=== PATIENT | female | born 1950 | race Caucasian/White ===

== ENCOUNTER 2025-04-05 17:13 | Emergency (ER) | payer MEDICARE, SELFPAY ==
[2025-04-05] VITALS (10 sets, daily range): BP systolic 140–156; BP diastolic 71–86; PULSE 80–87; RESP 16–20; TEMP 36.7–36.8; O2SAT 96–98; BMI 23.4
--- NOTE | 2025-04-05 17:45 | PC.NURSE ---
pt stated she wanted to wait for one of the rooms coming open so her family can be with her.
--- OUTSIDE RECORDS SUMMARY | 2025-04-05 18:31 | XMS_ITS ---
Author Organization Unknown TREATMENT PLAN [facility] Start Date Provider Encounter for Check-up [id number] [address]
--- NOTE | 2025-04-05 18:58 | PC.NURSE ---
pt back to triage and agreeable to be straight stuck for blood and willing to give a urine sample. this nurse apologized for not having a room available.
--- NOTE | 2025-04-05 19:00 | ECG_ITS ---
APPROVED REPORT Exam: Resting ECG HR:82 bpm ECG Measurements Heart Rate 82 AXES OK 221 P 64 QRSd 91 QRS 75 QT 340 T -33 QTc 379 Conclusion SINUS RHYTHM WITH FIRST DEGREE AV BLOCK LOW QRS VOLTAGE IN PRECORDIAL LEADS [QRS DEFLECTION < 1.0 mV IN CHEST LEADS] MODERATE T-WAVE ABNORMALITY, CONSIDER INFERIOR ISCHEMIA [-0.1+ mV T-WAVE IN II/aVF] ABNORMAL ECG UNCONFIRMED REPORT Electronically signed by : BIANCA VICTOR, 04/07/2025 23:05:31
--- NOTE | 2025-04-05 19:19 | XR_ITS ---
PROCEDURE INFORMATION: Exam: XR Chest Exam date and time: 04/05/2025 8:29 PM Age: 74 years old Clinical indication: Other: Weakness TECHNIQUE: Imaging protocol: Radiologic exam of the chest. Views: 1 view. COMPARISON: No relevant prior studies available. FINDINGS: Lungs: Question mild pulmonary hyperexpansion/hyperlucency suspicious for COPD. Pulmonary vasculature grossly normal. Questionable mild asymmetric alveolar density in the peripheral left mid lung, can not exclude early/mild pneumonia. Mild bandlike atelectasis in the medial left lung base. Granulomatous calcifications noted. Pleural spaces: No pleural effusion. No pneumothorax. Heart/Mediastinum: Heart size normal. No tracheal/mediastinal shift. Vasculature: The aorta demonstrates mild ectasia/tortuosity and moderate calcific atherosclerosis. Bones/joints: No acute osseous abnormalities are identified. Osteopenia. Organs: 3.7 x 2.7 cm masslike fullness in the left thyroid lobe distribution suspicious for thyroid mass. Consider nonemergent thyroid ultrasound assessment. IMPRESSION: 1. Question mild asymmetric alveolar density in the peripheral left mid lung, possibly early pneumonia. 2. 3.7 x 2.7 cm masslike density in the distribution of the left thyroid lobe. Correlate clinically, recommend nonemergent sonographic assessment.
--- NOTE | 2025-04-05 19:20 | XR_ITS ---
PROCEDURE INFORMATION: Exam: XR Left Hip Exam date and time: 04/05/2025 8:29 PM Age: 74 years old Clinical indication: Hip pain; Left hip; Additional info: Fall with pain TECHNIQUE: Imaging protocol: Radiologic exam of the left hip. Views: 2 or 3 views hip with pelvis when performed. COMPARISON: No relevant prior studies available. FINDINGS: Bones/joints: No fracture or malalignment. Soft tissues: No gross soft tissue abnormalities. IMPRESSION: No acute findings.
[2025-04-05 19:30] LABS: Hematocrit 35.0 % (37.0-47.0); Hemoglobin 11.9 g/dL (12.2-16.2); Immature Granulocytes % 0.1 %; Mean Corpuscular HGB Conc 34.0 g/dL (31.8-35.4); Mean Corpuscular Hemoglobin 30.7 pg (27.0-31.2); Mean Corpuscular Volume 90.2 fl (81-99); Nucleated Red Blood Cells % 0 %; Platelet Count 245 K/mm3 (142-424); Red Blood Count 3.88 M/mm3 (4.20-5.40); Red Cell Distribution Width-SD 41.4 fL; White Blood Count 7.9 K/mm3 (4.8-10.8)
[2025-04-05 19:46] LABS: Alanine Aminotransferase 13 U/L (12-78); Albumin Level 4.5 g/dl (3.5-5.0); Albumin/Globulin Ratio 2.0 (1.1-1.8); Alkaline Phosphatase 84 U/L (38-126); Anion Gap 17.0 mEq/L (5-15); Aspartate Amino Transferase 24 U/L (14-36); Bilirubin,Total 0.7 mg/dl (0.2-1.3); Blood Urea Nitrogen 25 mg/dl (7-17); Calcium 10.7 mg/dl (8.4-10.2); Carbon Dioxide 26 mmol/L (22.0-30.0); Chloride 100 mmol/L (98-107); Creatinine Clearance Estimated 31 mL/min (50-200); Creatinine,Serum 1.40 mg/dl (0.52-1.04); Estimated Glomerular Filt Rate 37 ml/min (>60); GFR (African American) 45 ML/MIN (>60); Globulin 2.3 g/dL (1.3-3.2); Glucose 100 mg/dl (74-100); Magnesium 2.0 mg/dl (1.6-2.3); Potassium 4.0 mmoL/L (3.5-5.1); Sodium 139 mmol/L (136-145); Total Protein,Serum 6.8 g/dl (6.3-8.2)
[2025-04-05 19:56] LABS: Troponin I < 0.01 ng/ml (0.00-0.034)
[2025-04-05 20:00] LABS: T4 (Thyroxine) 4.5 ug/dl (5.53-11.0)
[2025-04-05 20:14] LABS: Thyroid Stimulating Hormone 0.50 uIU/mL (0.465-4.68)
--- NOTE | 2025-04-05 21:08 | HMH.EDGENADL ---
Discharge Plan Disposition Patient Disposition: Home, Self-Care Prescriptions Prescriptions: New azithromycin 500 mg tablet 500 mg PO DAILY 5 Days Qty: 5 0RF Rx Instructions: 500 mg orally day 1 then 1 tab days 2-5 cefdinir 300 mg capsule 300 mg PO Q12H 10 Days Qty: 20 0RF Referrals Follow up/Referrals: Hernando Rader [Primary Care Provider, Medical] - See instructions Activity Restrictions/Add. Instructions Additional Instructions/Restrictions: Increase fluids and rest. Take meds as directed. Please see Dr. Rader or Friday of this week to reassess hip pain. He may need to do an MRI or other further imaging and treatment. Your imaging did show beginning stages of pneumonia. Also you do need to have a ultrasound of your thyroid as it did show a density on the left thyroid that needs to be imaged by your primary care. Clinical Impressions Clinical Impression: Acute pain of left hip, Pneumonia Instructions Patient Instructions: Pneumonia in Adults, DI for Pneumonia in Adults, How to Prevent Falls, DI for Joint Pain Print Language Print Language: Burkinan Discharge ED Provider: Zane Almanza General Adult HPI <Sonia Boone (ED), MANAGER MANAGING - Last Filed: 04/05/25 22:09> General Chief complaint: Fall Stated complaint: AMS Time Seen by Provider: 04/05/25 20:29 Mode of Arrival: Wheelchair Source of Information: Patient and Relative Description of Symptoms (Recalled from ER Triage Doc. by RN): pt to the ED with family with right hip pain after a fall yesterday. pt reports she tripped and fell onto her left hip. pt denies any LOC. pt family also states that the patient has been forgetful over the last 3 weeks and is concerned she might have a UTI. pt denies any urinary symptoms. History of Present Illness HPI narrative: 74-year-old female presents with family for left hip pain after a fall yesterday. The initial note says right hip but it is left hip pain she tripped and fell on wooden chair and fell into the other. She did not lose consciousness she did not hit her head or neck. She has been forgetful according to family. This has been going on for the last month or so. Patient denies any problems but family thinks that she is having some issues with her memory. Related Data Previous Rx's ?Medication ?Instructions ?Recorded azithromycin 500 mg tablet 500 mg PO DAILY 5 days #5 tabs 04/05/25 cefdinir 300 mg capsule 300 mg PO Q12H 10 days #20 caps 04/05/25 Allergies Allergy/AdvReac Type Severity Reaction Status Date / Time No Known Allergies Allergy Verified 04/05/25 19:19 PFSH <Sonia Boone (ED), MANAGER MANAGING - Last Filed: 04/05/25 22:09> PFS Disclaimer: The information contained in this section may have been updated after the patient was seen, as this information can be updated by other users. Social History (Updated 04/05/25 @ 22:09 by Sonia Boone (ED), MANAGER MANAGING) Smoking Status: Never smoker alcohol intake: former current occupational status: other Travel in the last 8 weeks?: None Have you lived/traveled outside US in past 30 days?: No Contact w/someone who lives/traveled outside US past 30 days?: No Exposure to someone with infectious disease in past 14 days?: No Do you have a fever (greater than 100.4 F or 38 C)?: No Have you tested positive for COVID-19?: No Exposed to someone with COVID-19 in past 14 days?: No Do you have a sore throat?: No Do you have a cough?: No Do you have any weakness?: No Do you have any diarrhea?: No Are you experiencing any unusual bleeding?: No Do you have any muscle aches/pain?: No Do you have any abdominal pain?: No Are you experiencing loss of taste or smell?: No <Sonia Boone (ED), MANAGER MANAGING - Last Filed: 04/05/25 22:09> ROS Obtained: Yes Systems reviewed as appropriate & no additional complaints except as documented Constitutional Constitutional: Reports as per HPI Physical Exam <Sonia Boone (ED), MANAGER MANAGING - Last Filed: 04/05/25 22:09> General General appearance: alert and in no apparent distress Head Head exam: normocephalic Eye Eye exam: Present PERRL and EOMI ENT ENT exam: Present normal oropharynx and mucous membranes moist Neck Neck exam: Present full ROM and trachea midline Respiratory Respiratory exam: Present normal lung sounds bilaterally Cardiovascular Cardiovascular exam: Present regular rate, normal rhythm, normal heart sounds, +S1 and +S2 Abdominal Exam Abdominal exam: Present soft and normal bowel sounds Extremities Exam Extremities exam: Present normal inspection, full ROM and normal capillary refill Back Exam Back exam: Present normal inspection Neurological Exam Neurological exam: Present alert and oriented X3 Skin Skin exam: Present warm, dry and intact Medical Decision Making <Sonia Milesjose m (ED), MANAGER MANAGING - Last Filed: 04/05/25 22:09> Medical Records Screening: Per USPSTF and CDC recommendations, given the prevalence of disease in our region, it is our hospital?s policy to screen for HIV and viral Hepatitis for all patients aged 18 and over and those with ongoing risk factors. Amilcar Inquiry Pt receiving controlled substance: No Amilcar was queried for this patient: No Vital Signs: 04/05/25 17:25 04/05/25 19:00 04/05/25 20:20 Temperature 98.2 F 98.0 F Temperature Source Oral Oral Pulse Rate 87 81 Pulse Rate [Left Radial] 82 Respiratory Rate 17 16 20 Blood Pressure 140/74 145/76 H Blood Pressure [Right Arm] 144/71 H Blood Pressure Mean Blood Pressure Mean [Right Arm] 95 Blood Pressure Source Automatic Cuff Automatic Cuff Blood Pressure Source [Right Arm] Automatic Cuff Blood Pressure Position Sitting Sitting Blood Pressure Position [Right Arm] Sitting 02 Sat by Pulse Oximetry 98 97 98 Oxygen Delivery Method Room Air Room Air Room Air 04/05/25 20:31 04/05/25 20:31 04/05/25 20:45 Temperature Temperature Source Pulse Rate 87 84 Pulse Rate [Left Radial] Respiratory Rate Blood Pressure 150/73 H Blood Pressure [Right Arm] Blood Pressure Mean 98 Blood Pressure Mean [Right Arm] Blood Pressure Source Blood Pressure Source [Right Arm] Blood Pressure Position Blood Pressure Position [Right Arm] 02 Sat by Pulse Oximetry 98 98 Oxygen Delivery Method 04/05/25 21:29 04/05/25 21:29 04/05/25 21:30 Temperature Temperature Source Pulse Rate 81 80 Pulse Rate [Left Radial] Respiratory Rate Blood Pressure 156/86 H Blood Pressure [Right Arm] Blood Pressure Mean 109 Blood Pressure Mean [Right Arm] Blood Pressure Source Blood Pressure Source [Right Arm] Blood Pressure Position Blood Pressure Position [Right Arm] 02 Sat by Pulse Oximetry 98 97 Oxygen Delivery Method 04/05/25 21:45 04/05/25 22:00 Temperature Temperature Source Pulse Rate 82 84 Pulse Rate [Left Radial] Respiratory Rate Blood Pressure 147/85 H Blood Pressure [Right Arm] Blood Pressure Mean Blood Pressure Mean [Right Arm] Blood Pressure Source Blood Pressure Source [Right Arm] Blood Pressure Position Blood Pressure Position [Right Arm] 02 Sat by Pulse Oximetry 98 97 Oxygen Delivery Method Lab Data Lab Results 04/05/25 19:16: WBC 7.9, RBC 3.88 L, Hgb 11.9 L, Hct 35.0 L, MCV 90.2, MCH 30.7, MCHC 34.0, RDW 12.5, Plt Count 245, MPV 9.2, Neut % (Auto) 66.8, Lymph % (Auto) 24.2, [place] % (Auto) 7.6, Eos % (Auto) 0.9, Baso % (Auto) 0.4, Neut # (Auto) 5.3, Lymph # (Auto) 1.9, [place] # (Auto) 0.6, Eos # (Auto) 0.1, Baso # (Auto) 0.0, Sodium 139, Potassium 4.0, Chloride 100, Carbon Dioxide 26, Anion Gap 17.0 H, BUN 25 H, Creatinine 1.40 H, Estimated Creat Clear 31, Estimated GFR 37 L, Est GFR ( Amer) 45 L, Glucose 100, Calcium 10.7 H, Magnesium 2.0, Total Bilirubin 0.7, AST 24, ALT 13, Alkaline Phosphatase 84, Troponin I < 0.01, Total Protein 6.8, Albumin 4.5, Globulin 2.3, Albumin/Globulin Ratio 2.0 H, TSH 0.50, Thyroxine (T4) 4.5 L 04/05/25 21:07: Urine Color Yellow, Urine Appearance Clear, Urine pH 6.0, Ur Specific [place] 1.010, Urine Protein Negative, Urine Glucose (UA) Negative, Urine Ketones Negative, Urine Blood Trace-i, Urine Nitrate Negative, Urine Bilirubin Negative, Urine Urobilinogen 0.2, Ur Leukocyte Esterase Trace 04/05/25 19:16 04/05/25 19:16 Orders (Tests/Meds): ED MEDICATIONS Discontinued Medications Generic Name Dose Route Start Last Admin Trade Name Freq PRN Reason Stop Dose Admin Hydrocodone Bitart/Acetaminophen 2 tab 04/05/25 20:43 04/05/25 21:26 Hydrocodone/Apap 5/325 Mg Tablet PO 04/05/25 20:44 2 tab ONCE ONE Administration Ketorolac Tromethamine 30 mg 04/05/25 20:44 04/05/25 21:25 Ketorolac 30mg/Ml Vial IM 04/05/25 20:45 30 mg ONCE ONE Administration ORDERS Category Date Time Status XR chest portable Stat Exams 04/05/25 19:19 Completed XR hip LT 2-3V w/pelvis Stat Exams 04/05/25 19:20 Completed Complete Blood Count Auto Diff Stat Lab 04/05/25 19:16 Completed Comprehensive Metabolic Panel Stat Lab 04/05/25 19:16 Completed Magnesium Stat Lab 04/05/25 19:16 Completed T4 (Thyroxine) Stat Lab 04/05/25 19:16 Completed Thyroid Stimulating Hormone Stat Lab 04/05/25 19:16 Completed Troponin I Q3H Lab 04/05/25 22:30 Ordered Troponin I Q3H Lab 04/06/25 01:30 Ordered Troponin I Stat Lab 04/05/25 19:16 Completed Urinalysis and Microscopic Stat Lab 04/05/25 21:07 Results Medical Decision Narrative: patient is a 74-year-old female presenting to the emergency department for evaluation of left hip pain. Patient is hemodynamically stable and nontoxic-appearing upon arrival, afebrile. Differential diagnosis includes left hip fracture versus sprain and strain. Workup will be conducted with hematologic labs, specific imaging. Initial inventions include crystalloid bolus, analgesics. Initial workup reviewed by me hematologic labs are remarkable for white count of 7.9, BUN 25, creatinine 1.4. I am awaiting imaging results. Left hip x-ray showed nothing acute. The chest x-ray showed early pneumonia and left thyroid lobe mass which needs a nonemergent sono. Discussed with patient. Patient will follow-up with Dr. Rader before the end of the week. Patient is safe for discharge home. Once medication sent to [facility] in [place]. I discussed her walking at home with her kids and they said that she can walk she is just slower. <Zane Almanza MD - Last Filed: 04/05/25 22:15> Vital Signs: 04/05/25 17:25 04/05/25 19:00 04/05/25 20:20 Temperature 98.2 F 98.0 F Temperature Source Oral Oral Pulse Rate 87 81 Pulse Rate [Left Radial] 82 Respiratory Rate 17 16 20 Blood Pressure 140/74 145/76 H Blood Pressure [Right Arm] 144/71 H Blood Pressure Mean Blood Pressure Mean [Right Arm] 95 Blood Pressure Source Automatic Cuff Automatic Cuff Blood Pressure Source [Right Arm] Automatic Cuff Blood Pressure Position Sitting Sitting Blood Pressure Position [Right Arm] Sitting 02 Sat by Pulse Oximetry 98 97 98 Oxygen Delivery Method Room Air Room Air Room Air 04/05/25 20:31 04/05/25 20:31 04/05/25 20:45 Temperature Temperature Source Pulse Rate 87 84 Pulse Rate [Left Radial] Respiratory Rate Blood Pressure 150/73 H Blood Pressure [Right Arm] Blood Pressure Mean 98 Blood Pressure Mean [Right Arm] Blood Pressure Source Blood Pressure Source [Right Arm] Blood Pressure Position Blood Pressure Position [Right Arm] 02 Sat by Pulse Oximetry 98 98 Oxygen Delivery Method 04/05/25 21:29 04/05/25 21:29 04/05/25 21:30 Temperature Temperature Source Pulse Rate 81 80 Pulse Rate [Left Radial] Respiratory Rate Blood Pressure 156/86 H Blood Pressure [Right Arm] Blood Pressure Mean 109 Blood Pressure Mean [Right Arm] Blood Pressure Source Blood Pressure Source [Right Arm] Blood Pressure Position Blood Pressure Position [Right Arm] 02 Sat by Pulse Oximetry 98 97 Oxygen Delivery Method 04/05/25 21:45 04/05/25 22:00 Temperature Temperature Source Pulse Rate 82 84 Pulse Rate [Left Radial] Respiratory Rate Blood Pressure 147/85 H Blood Pressure [Right Arm] Blood Pressure Mean Blood Pressure Mean [Right Arm] Blood Pressure Source Blood Pressure Source [Right Arm] Blood Pressure Position Blood Pressure Position [Right Arm] 02 Sat by Pulse Oximetry 98 97 Oxygen Delivery Method Lab Data Lab Results 04/05/25 19:16: WBC 7.9, RBC 3.88 L, Hgb 11.9 L, Hct 35.0 L, MCV 90.2, MCH 30.7, MCHC 34.0, RDW 12.5, Plt Count 245, MPV 9.2, Neut % (Auto) 66.8, Lymph % (Auto) 24.2, [place] % (Auto) 7.6, Eos % (Auto) 0.9, Baso % (Auto) 0.4, Neut # (Auto) 5.3, Lymph # (Auto) 1.9, [place] # (Auto) 0.6, Eos # (Auto) 0.1, Baso # (Auto) 0.0, Sodium 139, Potassium 4.0, Chloride 100, Carbon Dioxide 26, Anion Gap 17.0 H, BUN 25 H, Creatinine 1.40 H, Estimated Creat Clear 31, Estimated GFR 37 L, Est GFR ( Amer) 45 L, Glucose 100, Calcium 10.7 H, Magnesium 2.0, Total Bilirubin 0.7, AST 24, ALT 13, Alkaline Phosphatase 84, Troponin I < 0.01, Total Protein 6.8, Albumin 4.5, Globulin 2.3, Albumin/Globulin Ratio 2.0 H, TSH 0.50, Thyroxine (T4) 4.5 L 04/05/25 21:07: Urine Color Yellow, Urine Appearance Clear, Urine pH 6.0, Ur Specific [place] 1.010, Urine Protein Negative, Urine Glucose (UA) Negative, Urine Ketones Negative, Urine Blood Trace-i, Urine Nitrate Negative, Urine Bilirubin Negative, Urine Urobilinogen 0.2, Ur Leukocyte Esterase Trace Orders (Tests/Meds): ED MEDICATIONS Discontinued Medications Generic Name Dose Route Start Last Admin Trade Name Brianna PRN Reason Stop Dose Admin Hydrocodone Bitart/Acetaminophen 2 tab 04/05/25 20:43 04/05/25 21:26 Hydrocodone/Apap 5/325 Mg Tablet PO 04/05/25 20:44 2 tab ONCE ONE Administration Ketorolac Tromethamine 30 mg 04/05/25 20:44 04/05/25 21:25 Ketorolac 30mg/Ml Vial IM 04/05/25 20:45 30 mg ONCE ONE Administration ORDERS Category Date Time Status XR chest portable Stat Exams 04/05/25 19:19 Completed XR hip LT 2-3V w/pelvis Stat Exams 04/05/25 19:20 Completed Complete Blood Count Auto Diff Stat Lab 04/05/25 19:16 Completed Comprehensive Metabolic Panel Stat Lab 04/05/25 19:16 Completed Magnesium Stat Lab 04/05/25 19:16 Completed T4 (Thyroxine) Stat Lab 04/05/25 19:16 Completed Thyroid Stimulating Hormone Stat Lab 04/05/25 19:16 Completed Troponin I Q3H Lab 04/05/25 22:30 Ordered Troponin I Q3H Lab 04/06/25 01:30 Ordered Troponin I Stat Lab 04/05/25 19:16 Completed Urinalysis and Microscopic Stat Lab 04/05/25 21:07 Results Medical Decision Narrative: patient is a 74-year-old female presenting to the emergency department for evaluation of left hip pain. Patient is hemodynamically stable and nontoxic-appearing upon arrival, afebrile. Differential diagnosis includes left hip fracture versus sprain and strain. Workup will be conducted with hematologic labs, specific imaging. Initial inventions include crystalloid bolus, analgesics. Initial workup reviewed by me hematologic labs are remarkable for white count of 7.9, BUN 25, creatinine 1.4. I am awaiting imaging results. Left hip x-ray showed nothing acute. The chest x-ray showed early pneumonia and left thyroid lobe mass which needs a nonemergent sono. Discussed with patient. Patient will follow-up with Dr. Rader before the end of the week. Patient is safe for discharge home. Once medication sent to [facility] in [place]. I discussed her walking at home with her kids and they said that she can walk she is just slower. I was consulted by the [facility], and we discussed the complexity of the problems being addressed. I approved the treatment and management plan for this patient's care in the emergency department, thus performing a substantive portion of the medical decision making. Zane Almanza MD Critical Care <Sonia Boone (ED), MANAGER MANAGING - Last Filed: 04/05/25 22:09> Critical Care Time Critical Care Time: No
[2025-04-05 21:14] LABS: Microscopic, Urine URINE MICROSCOPIC (MICROSCOPIC)
[2025-04-05 21:23] LABS: Bilirubin,Urine Negative (Negative); Color,Urine YELLOW (Yellow); Glucose,Urine (UA) Negative (Negative); Ketones,Urine Negative (Negative); Leukocyte Esterase,Urine TRACE (Negative); PH,Urine 6.0 (5.0-8.5); Protein,Urine Negative (Negative); Specific Gravity, Urine 1.010 (1.005-1.030); Urobilinogen,Urine 0.2 EU/dl (0.2)
[2025-04-05] MEDS: KETOROLAC 30MG/ML VIAL 30 MG IM (21:25)
[2025-04-05] MEDS: HYDROCODONE/APAP 5/325 MG TABLET 2 TAB PO (21:26)
[2025-04-05 22:14] LABS: Bacteria,Urine Trace /lpf; RBC,Urine Occasional #/hpf (0-3); Squamous Epithelial Cell,Urine Occasional #/hpf (0-5); WBC,Urine Occasional #/hpf (0-3)
[2025-04-05 23:50] LABS: Hepatitis C Ab Qual. W/ RFX NEGATIVE (Negative)
== END 2025-04-05 22:25 | disposition home or self-care (01) ==
PROVIDERS: Nurse Practitioner; Emergency Provider Emergency Medicine; PCP Family Medicine
DX: J18.9 Pneumonia, unspecified organism (principal); M25.552 Pain in left hip; W19.XXXA Unspecified fall, initial encounter
CPT/HCPCS: 71045; 73502; 80053; 81001; 83735; 84436; 84443; 84484; 85025; 86803; 87389; 93005; 96372; 99285; J1885